=== PATIENT | male | born 2000 | race Asian ===

== ENCOUNTER 2023-01-03 18:55 | Emergency (ER) | payer OTHER ==
[~2023-01-03] VITALS: Ht 177.8 cm; Wt 192.0 kg
[2023-01-03 21:05] VITALS: BP 134/56
[2023-01-03] MEDS ORDERED: PENI500T2 PO (21:32)
[2023-01-03] MEDS ORDERED: IBUP-1492 PO (21:33)
[2023-01-03] MEDS ORDERED: HYDR-4723 PO (21:34)
== END 2023-01-03 21:47 | disposition home or self-care (01) ==
LOC: EMS 19:01
DX: K08.89 Other specified disorders of teeth and supporting structures (principal); Z98.890 Other specified postprocedural states
CPT/HCPCS: 99283; Z7502